=== PATIENT | male | born 1995 | race Caucasian/White ===

== ENCOUNTER 2017-01-08 02:43 | Emergency (ER) | payer BC, OTHER ==
[~2017-01-08] VITALS: Ht 180.3 cm; Wt 65.8 kg
[2017-01-08] MEDS ORDERED: TRIM/SULFAMETH 160/800 (SEPTRA DS) TAB PO ONE (04:15)
[2017-01-08] MEDS ORDERED: LIDOCAINE 1% INJ 20 ML (XYLOCAINE) VIAL INJ ONE (04:15)
[2017-01-08] MEDS ORDERED: SULF1TAB35 PO (05:13)
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
[2017-01-08 05:22] VITALS: BP 122/71
== END 2017-01-08 05:21 | disposition home or self-care (01) ==
LOC: EDUNIT# 02:43 → ER 02:47
DX: S81.821A Laceration with foreign body, right lower leg, initial encounter (principal); J45.909 Unspecified asthma, uncomplicated; F17.210 Nicotine dependence, cigarettes, uncomplicated; Y04.0XXA Assault by unarmed brawl or fight, initial encounter; W22.09XA Striking against other stationary object, initial encounter
CPT/HCPCS: 12002

== ENCOUNTER 2017-01-10 13:28 | Emergency (ER) | payer BC ==
[~2017-01-10] VITALS: Ht 180.3 cm; Wt 72.6 kg
[~2017-01-10 13:28] MED LIST: SULF1TAB35 PO
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
[2017-01-10 13:55] VITALS: BP 122/70
== END 2017-01-10 13:55 | disposition home or self-care (01) ==
LOC: EDUNIT# 13:28 → ER 13:30
DX: S81.811D Laceration without foreign body, right lower leg, subsequent encounter (principal); W19.XXXA Unspecified fall, initial encounter; Y99.8 Other external cause status
CPT/HCPCS: 87070; 87205; 99282

== ENCOUNTER 2017-01-17 13:32 | Emergency (ER) | payer BC ==
[~2017-01-17] VITALS: Ht 180.3 cm; Wt 68.0 kg
[2017-01-17 14:01] VITALS: BP 124/70
== END 2017-01-17 14:01 | disposition home or self-care (01) ==
LOC: EDUNIT# 13:32 → ER 13:34
DX: S81.811D Laceration without foreign body, right lower leg, subsequent encounter (principal)